=== PATIENT | female | born 1975 | race Asian ===

== ENCOUNTER 2020-12-26 15:56 | Emergency (ER) | payer BC, OTHER ==
[~2020-12-26] VITALS: Ht 154.9 cm; Wt 49.4 kg
[2020-12-26 16:02] VITALS: BP_SYST 109
[2020-12-26 17:45] VITALS: BP_SYST 136
== END 2020-12-26 17:45 | disposition home or self-care (01) ==
LOC: SED 15:56
DX: S63.502A Unspecified sprain of left wrist, initial encounter (principal); W18.39XA Other fall on same level, initial encounter; Y93.89 Activity, other specified; Y92.89 Other specified places as the place of occurrence of the external cause; Y99.8 Other external cause status
CPT/HCPCS: 73090; 99284